=== PATIENT | male | born 1985 | race Caucasian/White ===

== ENCOUNTER 2019-02-09 16:16 | Emergency (ER) | payer SELFPAY ==
[~2019-02-09] VITALS: Ht 165.1 cm; Wt 73.0 kg
[2019-02-09 16:21] VITALS: BP 125/86
== END 2019-02-09 19:45 | disposition left against medical advice (07) ==
LOC: ER 16:16
DX: F98.9 Unspecified behavioral and emotional disorders with onset usually occurring in childhood and adolescence (principal); Z53.21 Procedure and treatment not carried out due to patient leaving prior to being seen by health care provider